=== PATIENT | male | born 1960 | race Caucasian/White ===

== ENCOUNTER 2024-04-19 12:14 | Inpatient (IN) | payer MEDICAID, OTHER ==
[~2024-04-19] VITALS: Ht 165.1 cm; Wt 64.4 kg
[2024-04-19] MEDS: IOHEXOL-350 100 ML BOTTLE ONE (13:11)
[2024-04-19 13:30] LABS: BASOPHILS % 0.8 % (0.0-2.0); EOSINOPHILS % 1.5 % (0.0-5.0); HEMATOCRIT. 44.3 % (42.0-52.0); HEMOGLOBIN. 15.1 g/dL (14.0-18.0); LYMPHOCYTES % 18.9 % (20.0-50.0); MEAN CORPUSCULAR HEMOGLOBIN 31.5 pg (28.0-32.0); MEAN CORPUSCULAR VOLUME 92.5 fL (80.0-94.0); MEAN PLATELET VOLUME 10.5 fl (7.4-10.4); MONOCYTES % 7.6 % (2.0-8.0); NEUTROPHILS % 71.2 % (40.0-76.0); PLATELET 244 x1000/uL (130-400); RED BLOOD CELL COUNT 4.79 mill/uL (4.7-6.1); RED CELL DISTRIBUTION WIDTH 12.6 % (11.6-14.6); WHITE BLOOD COUNT 5.9 x1000/uL (4.5-11.0)
[2024-04-19 13:45] LABS: INR 0.9; PROTHROMBIN TIME 10.4 sec (9.6-11.0)
[2024-04-19 14:13] LABS: CHLORIDE 109 mEq/L (98-107); POTASSIUM 3.7 mEq/L (3.5-5.1); SODIUM 140 mEq/L (136-145)
[2024-04-19 14:14] LABS: CALCIUM 9.2 mg/dL (8.7-10.4); CARBON DIOXIDE 25 mEq/L (21-32)
[2024-04-19 14:19] LABS: CREATININE 0.7 mg/dL (0.6-1.3); GLUCOSE 109 mg/dL (70-105); UREA NITROGEN BLOOD 13 mg/dL (9-23)
[2024-04-19 14:20] LABS: TROPONIN I HIGH SENSITIVITY 5 ng/L (3.0-53)
[2024-04-19 14:23] LABS: ETHANOL BLOOD < 10 mg/dL (<10)
[2024-04-19 15:56] VITALS: BP 177/101; PULSE 68; RESP 20; TEMP 97.9
[2024-04-19] MEDS ORDERED: ONDANSETRON HCL 4MG/2ML INJ IV PRN (16:15)
[2024-04-19] MEDS ORDERED: IPRATROPIUM/ALBUTEROL 0.5-3(2.5)MG/3ML NEB HHN PRN (16:15)
[2024-04-19] MEDS ORDERED: DIPHENHYDRAMINE 50MG/ML VIAL IV PRN (16:15)
[2024-04-19 16:16] VITALS: BP 177/101; PULSE 68; RESP 20; TEMP 97.9
[2024-04-19 16:44] VITALS: BP 180/85
[2024-04-19] MEDS: ASPIRIN 81MG TABLET PO SCH (16:49)
[2024-04-19] MEDS: CLOPIDOGREL 75MG TABLET PO SCH (16:50)
[2024-04-19] MEDS: CLONIDINE 0.1MG TABLET PO PRN (16:50)
[2024-04-19 18:24] VITALS: BP 130/77
[2024-04-19 20:00] VITALS: BP 128/72; PULSE 57; RESP 20; TEMP 98.8
[2024-04-20 00:01] VITALS: BP 134/82; PULSE 68; RESP 18; TEMP 97.2
[2024-04-20 04:00] VITALS: BP 119/68; PULSE 62; RESP 18; TEMP 97.8
[2024-04-20 07:49] LABS: BASOPHILS % 0.6 % (0.0-2.0); EOSINOPHILS % 2.9 % (0.0-5.0); HEMATOCRIT. 43.3 % (42.0-52.0); HEMOGLOBIN. 14.4 g/dL (14.0-18.0); LYMPHOCYTES % 21.2 % (20.0-50.0); MEAN CORPUSCULAR HEMOGLOBIN 30.9 pg (28.0-32.0); MEAN CORPUSCULAR HGB CONC 33.1 g/dL (31.0-37.0); MEAN CORPUSCULAR VOLUME 93.1 fL (80.0-94.0); MEAN PLATELET VOLUME 10.5 fl (7.4-10.4); MONOCYTES % 8.9 % (2.0-8.0); NEUTROPHILS % 66.4 % (40.0-76.0); PLATELET 236 x1000/uL (130-400); RED BLOOD CELL COUNT 4.65 mill/uL (4.7-6.1); WHITE BLOOD COUNT 6.5 x1000/uL (4.5-11.0)
[2024-04-20 08:00] VITALS: BP 127/71; PULSE 67; RESP 18; TEMP 97.7
[2024-04-20 08:09] LABS: CARBON DIOXIDE 27 mEq/L (21-32); CHLORIDE 107 mEq/L (98-107); POTASSIUM 3.8 mEq/L (3.5-5.1); SODIUM 141 mEq/L (136-145)
[2024-04-20 08:10] LABS: CALCIUM 8.9 mg/dL (8.7-10.4)
[2024-04-20 08:14] LABS: CREATININE 0.7 mg/dL (0.6-1.3)
[2024-04-20 08:15] LABS: GLUCOSE 95 mg/dL (70-105); UREA NITROGEN BLOOD 13 mg/dL (9-23)
[2024-04-20 12:00] VITALS: BP 132/78; PULSE 56; RESP 18; TEMP 98.1
[2024-04-20 16:00] VITALS: BP 122/73; PULSE 61; RESP 18; TEMP 98
[2024-04-20 20:00] VITALS: BP 150/73; PULSE 61; RESP 18; TEMP 97.4
[2024-04-20] MEDS: ATORVASTATIN CALCIUM 40MG TABLET PO SCH (21:58)
[2024-04-21] VITALS: BP 136/73; PULSE 62; RESP 18; TEMP 97.4
[2024-04-21 04:00] VITALS: BP 126/57; PULSE 66; RESP 18; TEMP 96.8
[2024-04-21 08:00] VITALS: BP 119/73; PULSE 57; RESP 18; TEMP 97.8
[2024-04-21 12:00] VITALS: BP 130/80; PULSE 59; RESP 20; TEMP 98
[2024-04-21 16:00] VITALS: BP 155/92; PULSE 61; RESP 20; TEMP 97
[2024-04-21 20:00] VITALS: BP 162/92; PULSE 70; RESP 20; TEMP 97.6
[2024-04-22] VITALS (46 sets, daily range): BP systolic 121–165; BP diastolic 61–97; PULSE 66–101; RESP 10–33; TEMP 97.5–98.2
[2024-04-22] MEDS ORDERED: ONDANSETRON HCL 4MG/2ML INJ ONE (07:04)
[2024-04-22] MEDS ORDERED: DEXAMETHASONE 4MG/ML 1ML VIAL ONE (07:04)
[2024-04-22] MEDS ORDERED: LIDOCAINE HCL 1% 10 MG/ML 10ML VIAL ONE (07:04)
[2024-04-22] MEDS ORDERED: MIDAZOLAM HCL 2 MG/2 ML VIAL ONE (07:05)
[2024-04-22] MEDS ORDERED: ROCURONIUM BROMIDE 10MG/ML VIAL 5ML IV ONE (07:05)
[2024-04-22] MEDS ORDERED: PROPOFOL 200MG/20ML VIAL IV ONE ×2 (07:05→08:30)
[2024-04-22] MEDS ORDERED: POLYMYXIN B SULFATE 500000 UNITS/VIAL ONE (07:06)
[2024-04-22] MEDS ORDERED: THROMBIN (BOVINE) 5000 UNITS/VIAL TOP ONE (07:06)
[2024-04-22] MEDS ORDERED: FENTANYL CITRATE/PF 50MCG/ML 2ML VIAL ONE (07:06)
[2024-04-22] MEDS ORDERED: BACITRACIN 14GM TUBE TOP ONE (07:07)
[2024-04-22] MEDS ORDERED: HEPARIN SODIUM 1,000 UNIT/1ML VIAL IV ONE (07:07)
[2024-04-22] MEDS ORDERED: LIDOCAINE HCL 1% 20ML VIAL (Pyxis) INJ ONE (07:07)
[2024-04-22] MEDS ORDERED: BUPIVACAINE HCL/PF 0.5% (5MG/ML) 10ML ONE (07:07)
[2024-04-22 07:10] LABS: CARBON DIOXIDE 26 mEq/L (21-32); CHLORIDE 106 mEq/L (98-107); POTASSIUM 3.9 mEq/L (3.5-5.1); SODIUM 142 mEq/L (136-145)
[2024-04-22 07:12] LABS: CALCIUM 8.9 mg/dL (8.7-10.4)
[2024-04-22 07:14] LABS: BASOPHILS % 0.7 % (0.0-2.0); DIFFERENTIAL COMMENT 0; EOSINOPHILS % 3.6 % (0.0-5.0); HEMATOCRIT. 44.1 % (42.0-52.0); HEMOGLOBIN. 14.8 g/dL (14.0-18.0); MEAN CORPUSCULAR HEMOGLOBIN 31.3 pg (28.0-32.0); MEAN CORPUSCULAR HGB CONC 33.7 g/dL (31.0-37.0); MEAN PLATELET VOLUME 10.4 fl (7.4-10.4); MONOCYTES % 9.2 % (2.0-8.0); NEUTROPHILS % 69.5 % (40.0-76.0); PLATELET 220 x1000/uL (130-400); RED BLOOD CELL COUNT 4.74 mill/uL (4.7-6.1); RED CELL DISTRIBUTION WIDTH 12.8 % (11.6-14.6); WHITE BLOOD COUNT 6.8 x1000/uL (4.5-11.0)
[2024-04-22 07:15] LABS: CREATININE 0.7 mg/dL (0.6-1.3)
[2024-04-22 07:16] LABS: GLUCOSE 97 mg/dL (70-105); UREA NITROGEN BLOOD 15 mg/dL (9-23)
[2024-04-22] MEDS ORDERED: CEFAZOLIN SODIUM 1000MG/VIAL ONE (07:18)
[2024-04-22] MEDS ORDERED: NITROGLYCERIN 50MG PREMIX 250 ML IV ONE (07:30)
[2024-04-22] MEDS ORDERED: NICARDIPINE 40 MG/200 ML PREMIX 200 ML IV PRN (07:30)
[2024-04-22] MEDS ORDERED: MORPHINE SULFATE 4 MG/ML INJ (FOR IV/IM USE) IV PRN (07:30)
[2024-04-22] MEDS ORDERED: NICARDIPINE 40MG/200ML PREMIX 200 ML IV PRN ×2 (07:45→19:12)
[2024-04-22] MEDS ORDERED: GLYCOPYRROLATE 0.2 MG/ML 2ML VIAL ONE (08:20)
[2024-04-22] MEDS ORDERED: ONDANSETRON HCL 4MG/2ML INJ IV PRN (09:00)
[2024-04-22] MEDS ORDERED: HYDROMORPHONE HCL/PF 2MG/ML CPJ IV PRN (09:00)
[2024-04-22] MEDS ORDERED: FENTANYL CITRATE/PF 50MCG/ML 2ML VIAL IV PRN (09:00)
[2024-04-22] MEDS ORDERED: NALOXONE HCL 0.4MG/ML VIAL IV PRN (09:30)
[2024-04-22] MEDS: NICARDIPINE 40MG/200ML PREMIX 200 ML IV PRN (10:00)
[2024-04-22] MEDS: NICARDIPINE 50 MG in SODIUM CHLORIDE 0.9% 230 ML IV PRN (20:20)
[2024-04-23] VITALS (38 sets, daily range): BP systolic 118–160; BP diastolic 51–92; PULSE 66–92; RESP 12–26; TEMP 97.5–100.2
[2024-04-23 05:17] LABS: CHLORIDE 105 mEq/L (98-107); POTASSIUM 3.7 mEq/L (3.5-5.1); SODIUM 142 mEq/L (136-145)
[2024-04-23 05:18] LABS: CALCIUM 8.6 mg/dL (8.7-10.4); CARBON DIOXIDE 29 mEq/L (21-32)
[2024-04-23 05:21] LABS: BASOPHILS % 0.1 % (0.0-2.0); EOSINOPHILS % 0.4 % (0.0-5.0); HEMATOCRIT. 38.9 % (42.0-52.0); HEMOGLOBIN. 13.3 g/dL (14.0-18.0); LYMPHOCYTES % 9.9 % (20.0-50.0); MEAN CORPUSCULAR HEMOGLOBIN 31.5 pg (28.0-32.0); MEAN CORPUSCULAR VOLUME 92.7 fL (80.0-94.0); MEAN PLATELET VOLUME 10.4 fl (7.4-10.4); MONOCYTES % 12.4 % (2.0-8.0); NEUTROPHILS % 77.2 % (40.0-76.0); PLATELET 208 x1000/uL (130-400); RED CELL DISTRIBUTION WIDTH 12.6 % (11.6-14.6); WHITE BLOOD COUNT 10.3 x1000/uL (4.5-11.0)
[2024-04-23 05:23] LABS: CREATININE 0.7 mg/dL (0.6-1.3); GLUCOSE 118 mg/dL (70-105); UREA NITROGEN BLOOD 17 mg/dL (9-23)
[2024-04-23] MEDS: AMLODIPINE 5MG TABLET PO SCH (13:06)
[2024-04-23] MEDS: ACETAMINOPHEN 325MG TABLET PO PRN (16:36)
[2024-04-24] VITALS (66 sets, daily range): BP systolic 99–159; BP diastolic 57–100; PULSE 55–88; RESP 10–27; TEMP 97.2–98
[2024-04-24 05:22] LABS: BASOPHILS % 0.3 % (0.0-2.0); EOSINOPHILS % 1.6 % (0.0-5.0); HEMATOCRIT. 37.6 % (42.0-52.0); HEMOGLOBIN. 12.6 g/dL (14.0-18.0); LYMPHOCYTES % 9.4 % (20.0-50.0); MEAN CORPUSCULAR HEMOGLOBIN 31.5 pg (28.0-32.0); MEAN CORPUSCULAR HGB CONC 33.6 g/dL (31.0-37.0); MEAN CORPUSCULAR VOLUME 93.9 fL (80.0-94.0); MEAN PLATELET VOLUME 10.2 fl (7.4-10.4); MONOCYTES % 12.6 % (2.0-8.0); NEUTROPHILS % 76.1 % (40.0-76.0); PLATELET 199 x1000/uL (130-400); RED BLOOD CELL COUNT 4.01 mill/uL (4.7-6.1); RED CELL DISTRIBUTION WIDTH 12.3 % (11.6-14.6); WHITE BLOOD COUNT 9.8 x1000/uL (4.5-11.0)
[2024-04-24 05:36] LABS: CHLORIDE 105 mEq/L (98-107); POTASSIUM 3.9 mEq/L (3.5-5.1); SODIUM 142 mEq/L (136-145)
[2024-04-24 05:37] LABS: CARBON DIOXIDE 28 mEq/L (21-32)
[2024-04-24 05:38] LABS: CALCIUM 8.9 mg/dL (8.7-10.4)
[2024-04-24 05:42] LABS: CREATININE 0.6 mg/dL (0.6-1.3); GLUCOSE 112 mg/dL (70-105); UREA NITROGEN BLOOD 17 mg/dL (9-23)
[2024-04-25] VITALS (48 sets, daily range): BP systolic 98–176; BP diastolic 56–124; PULSE 57–89; RESP 11–30; TEMP 97.8–98.6
[2024-04-25 06:04] LABS: HEMATOCRIT 41.1 % (42.0-52.0); HEMOGLOBIN 13.8 g/dL (14.0-18.0); MEAN CORPUSCULAR HEMOGLOBIN 31.6 pg (28.0-32.0); MEAN CORPUSCULAR HGB CONC 33.6 g/dL (31.0-37.0); MEAN CORPUSCULAR VOLUME 94.1 fL (80.0-94.0); PLATELET 233 x1000/uL (130-400); RED BLOOD CELL COUNT 4.37 mill/uL (4.7-6.1); RED CELL DISTRIBUTION WIDTH 12.3 % (11.6-14.6); WHITE BLOOD COUNT 10.5 x1000/uL (4.5-11.0)
[2024-04-25 06:13] LABS: CHLORIDE 107 mEq/L (98-107); POTASSIUM 3.9 mEq/L (3.5-5.1); SODIUM 143 mEq/L (136-145)
[2024-04-25 06:15] LABS: CALCIUM 9.3 mg/dL (8.7-10.4); CARBON DIOXIDE 28 mEq/L (21-32)
[2024-04-25 06:20] LABS: CREATININE 0.6 mg/dL (0.6-1.3); GLUCOSE 95 mg/dL (70-105); UREA NITROGEN BLOOD 17 mg/dL (9-23)
[2024-04-26] VITALS: BP 142/65; PULSE 76; RESP 18; TEMP 98.5
[2024-04-26 04:00] VITALS: BP 118/78; PULSE 67; RESP 16; TEMP 98.5
[2024-04-26 08:00] VITALS: BP 161/83; PULSE 73; RESP 17; TEMP 98.3
[2024-04-26 12:00] VITALS: BP 148/73; PULSE 63; RESP 13; TEMP 98.7
[2024-04-26] MEDS ORDERED: AMLO5TAB88 PO (13:19)
[2024-04-26] MEDS ORDERED: LIP40 PO (13:19)
[2024-04-26] MEDS ORDERED: ASPI-1160 PO (13:19)
[2024-04-26] MEDS ORDERED: CLOP-31 PO (13:19)
[2024-04-26 14:59] VITALS: BP 148/73; PULSE 63; TEMP 98.7; O2SAT 95
== END 2024-04-26 16:05 | disposition home or self-care (01) | DRG 37 ==
LOC: ER 12:14 → 8WST 14:37 → EDBEDREQTM 14:42 → EDBEDREQ 14:42 → CVICU 04-22 09:06 → 3WST 04-25 17:03
PROVIDERS: ADMIT Internal Medicine; ATTEND Internal Medicine
PROC: 03CK0ZZ Extirpation of Matter from Right Internal Carotid Artery, Open Approach (ICD-10-PCS; principal; 2024-04-22)
PROC: 03CH0ZZ Extirpation of Matter from Right Common Carotid Artery, Open Approach (ICD-10-PCS; 2024-04-22)
DX: I65.21 Occlusion and stenosis of right carotid artery (principal); I63.9 Cerebral infarction, unspecified; E78.5 Hyperlipidemia, unspecified; I10 Essential (primary) hypertension; I65.02 Occlusion and stenosis of left vertebral artery
CPT/HCPCS: 36415; 70496; 70498; 70551; 71045; 80048; 80061; 80320; 84484; 85025; 85027; 88304; 88311; 93005; 93970; 99291; J0690; J1100; J1644; J2250; J2405; J2704; J3010; J3490; J7030; J7050; J7120; Q9967; G0480